=== PATIENT | female | born 1970 | race African-American/Black ===

== ENCOUNTER 2019-04-26 17:33 | Observation (INO) | payer OTHER ==
--- OUTSIDE RECORDS SUMMARY | 2019-04-26 17:36 | XMS REPORT | Summary of Care ---
:1970 Author Organization [facility] Address [address] [place] [address] Care Team Providers Name Role Phone Pcp, Patient Does Not Have A Primary Care Provider Reason for Visit Reason Comments Hand Pain Right Hand Encounter Details Date Type Department Care Team Description 11/22/2018 Office Visit [facility] Orthopaedic Abram Preciado S, Trigger thumb of right Surgery- [place] PAC hand (Primary Dx) [address], [address] [place] [address] [place], [place] [phone] Allergies Active Allergy Reactions Severity Noted Date Comments Propoxyphene N-Acetaminophen Unknown - See comments 04/01/2006 Naproxen Unknown - See comments 04/01/2006 Hydrocodone-Acetaminophen Unknown - See comments 04/01/2006 Olanzapine Unknown - See comments 04/01/2006 documented as of this encounter (statuses as of 11/22/2018) Medications Medication Sig Dispensed Refills Start Date End Date Status metoprolol tartrate 50 TAKE 1 TABLET BY 60 tablet 5 08/15/2018 Active mg tabletIndications: MOUTH 2 (TWO) Essential hypertension TIMES DAILY. QUEtiapine 200 mg TAKE 2-3 TABLETS 90 tablet 5 08/15/2018 Active tabletIndications: BY MOUTH EVERY Bipolar 1 disorder NIGHT AT BED TIME. escitalopram oxalate 10 TAKE ONE TABLET 30 tablet 5 08/15/2018 Active mg tabletIndications: BY MOUTH DAILY. Bipolar 1 disorder ` albuterol (VENTOLIN HFA) INHALE 1-2 PUFFS 18 g 11 08/15/2018 Active 90 mcg/actuation AT BEDTIME inhalerIndications: NEEDED Other chest pain nitroglycerin 0.4 mg 1 SL at onset of 20 Bottle 2 08/15/2018 Active sublingual chest pain, tabletIndications: Other repeat every 5 chest pain mins if chest pain persists up to 3 doses total diclofenac 75 mg EC Take 1 tablet by 60 tablet 1 09/12/2018 Active tabletIndications: Acute mouth 2 (two) idiopathic gout times daily with involving toe of right meals. foot emtricitabine-tenofovir Take 1 tablet by 30 tablet 11 11/13/2018 Active alafen (DESCOVY) mouth daily. tabletIndications: HIV Take one 200/25 (human immunodeficiency mg tablet once virus infection) daily (take with efavirenz) efavirenz 600 mg 1 po once daily 30 tablet 11 11/13/2018 Active tabletIndications: HIV (take with (human immunodeficiency Descovy) virus infection) methylPREDNISolone Take 21 tablets 1 Each 0 11/22/2018 Active (MEDROL, VALENTINE,) 4 mg by mouth tabletsIndications: SEE-INSTRUCTIONS Trigger thumb of right . follow package hand directions documented as of this encounter (statuses as of 11/22/2018) Active Problems Problem Noted Date Bipolar 1 disorder 10/04/2011 Human immunodeficiency virus (HIV) disease 07/02/2007 documented as of this encounter (statuses as of 11/22/2018) Resolved Problems Problem Noted Date Resolved Date Chronic ulcer 07/12/2006 01/27/2009 Overview: ICD10 Diagnosis Term Box Repairer Utility Thrombocytopenia 03/20/2006 01/27/2009 Overview: ICD10 Diagnosis Term Box Repairer Utility Other specified cardiac dysrhythmias(427.89) 03/20/2006 01/27/2009 Peritonitis 03/12/2006 01/27/2009 Overview: ICD10 Diagnosis Term Box Repairer Utility ASYMPTOMATIC HIV INFECTION STATUS(aka V08) 03/12/2006 01/27/2009 Other specified hypotension 03/12/2006 01/27/2009 documented as of this encounter (statuses as of 11/22/2018) Immunizations Name Administration Dates Next Due Influenza Virus Vaccine 12/27/2011, 02/16/2011 PPD (TB) 03/03/2012 Pneumococcal 13 Conjugate, PCV13 (Prevnar 13) 06/16/2014 Pneumococcal Polysaccharide, PPSV23 (PNEUMOVAX) 09/10/2007 TDAP (ADACEL) VACCINE 02/16/2011 documented as of this encounter Social History Tobacco Use Types Packs/Day Years Used Date Never Smoker Smokeless Tobacco: Never Used Alcohol Use Drinks/Week oz/Week Comments No Sex Assigned at Date Recorded Not on file Job Start Date Occupation Industry Not on file Not on file Not on file Travel History Travel Start Travel End No recent travel history available. documented as of this encounter Last Filed Vital Signs Vital Sign Reading Time Taken Comments Blood Pressure 125/82 11/22/2018 3:51 PM CDT Pulse 88 11/22/2018 3:51 PM CDT Temperature - - Respiratory Rate - - Oxygen Saturation - - Inhaled Oxygen Concentration - - Weight 97.1 kg (214 lb) 11/22/2018 3:51 PM CDT Height 152.4 cm (5') 11/22/2018 3:51 PM CDT Body Mass Index 41.79 11/22/2018 3:51 PM CDT documented in this encounter Progress Notes Abram Preciado S, PAC - 11/22/2018 3:45 PM CDT Cc: Chief Complaint Patient presents with Hand Pain Right Hand NCEP - Right hand pain - onset 1 week. Denies injury. Sharp shooting pain in palm of hand that radiates to mid-forearm. Has taken Aleve and tried bracing which has not helped. No films. Dariela Coelho is a 48 year old female. Right hand pain - onset 1 week. Denies injury. Sharp shooting pain in palm of hand that radiates to mid-forearm. Has taken Aleve and tried bracing which has not helped. Her right thumb wouldn't bend, volar thumb pain Allergies Dariela is allergic to darvocet a500 [propoxyphene n-acetaminophen]; naproxen ; vicodin [hydrocodone-acetaminophen]; and zyprexa [olanzapine]. Medications Outpatient Medications Prior to Visit Medication Sig Dispense Refill efavirenz 600 mg tablet 1 po once daily (take with Descovy) 30 tablet 11 emtricitabine-tenofovir alafen (DESCOVY) tablet Take 1 tablet by mouth daily. Take one 200/25 mgtablet once daily (take with efavirenz) 30 tablet 11 diclofenac 75 mg EC tablet Take 1 tablet by mouth 2 (two) times daily with meals. 60 tablet 1 albuterol (VENTOLIN HFA) 90 mcg/actuation inhaler INHALE 1-2 PUFFS AT BEDTIME NEEDED 18 g 11 escitalopram oxalate 10 mg tablet TAKE ONE TABLET BY MOUTH DAILY. ` 30 tablet 5 metoprolol tartrate 50 mg tablet TAKE 1 TABLET BY MOUTH 2 (TWO) TIMES DAILY. 60 tablet 5 nitroglycerin 0.4 mg sublingual tablet 1 SL at onset of chest pain, repeat every 5 mins if chestpain persists up to 3 doses total 20 Bottle 2 QUEtiapine 200 mg tablet TAKE 2-3 TABLETS BY MOUTH EVERY NIGHT AT BED TIME. 90 tablet 5 No facility-administered medications prior to visit. 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 Bipolar I disorder 01/27 Cardiomyopathy Echo 05/24 (25% EF), last Echo nl except trace TR in 02/25 GERD (gastroesophageal reflux disease) resolved Hepatitis 06/12/06 non-necrotizing granulomas on liver bx Herpes genitalis HTN (hypertension) when heavier Human immunodeficiency virus (HIV) disease 1994 Oral candidiasis Proteinuria 05/25 30 mg/dL Wasting 02/22 weight 04/26=93 lbs, pre-illness wt - 180 lbs Past Surgical History: Procedure Laterality Date LAP,CHOLECYSTECTOMY 02/22 TOTAL ABDOMINAL HYSTERECTOMY 12/06/10 TUBAL LIGATION Social History Socioeconomic History Marital status: Spouse name: Not on file Number of children: Not on file Years of education: Not on file Highest education level: Not on file Occupational History Not on file Social Needs Financial resource strain: Not on file Food insecurity: Worry: Not on file Inability: Not on file Transportation needs: Medical: Not on file Non-medical: Not on file Tobacco Use Smoking status: Never Smoker Smokeless tobacco: Never Used Substance and Sexual Activity Alcohol use: No Drug use: No Sexual activity: Not Currently Lifestyle Physical activity: Days per week: Not on file Minutes per session: Not on file Stress: Not on file Relationships Social connections: Talks on phone: Not on file Gets together: Not on file Attends congregational service: Not on file Active member of club or organization: Not on file Attends meetings of clubs or organizations: Not on file Relationship status: Not on file Intimate partner violence: Fear of current or ex partner: Not on file Emotionally abused: Not on file Physically abused: Not on file Forced sexual activity: Not on file Other Topics Concern Not on file Social History Narrative Lives in [place] with 3 teen age kids (age 17, 14, 13) oldest 18 y/o enrolled in college. 5 children total Kids were with 1st , Currently from 2nd , Elijah Coelho, who is HIV (+) and formerly a patient here. He is not reeving HIV care that she knows of Has Medicaid/Medicare. 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 HENT: Negative. Eyes: Negative. Respiratory: Negative. Breasts: Negative. Cardiovascular: Negative. Gastrointestinal: Negative. Genitourinary: Negative. Musculoskeletal: Positive for joint swelling. Skin: Negative. Neurological: Negative. Psychiatric/Behavioral: Negative. Endocrine: Endocrine negative Vital Signs BP 125/82 | Pulse 88 | Ht 60" (152.4 cm) | Wt 97.1 kg (214 lb) | BMI 41.79 kg/m Physical Exam Musculoskeletal: General: Well-developed well-nourished oriented to person place and time HEENT normocephalic atraumatic atraumatic pupils equal round reactive to light extraocular muscles intact Cervical thoracic and lumbar spine without focal deficit normal kyphosis and lordosis Chest clear to auscultation and percussion Cardiovascular regular rate and rhythm without gallop rub or murmur soft without organomegaly Normal bowel sounds Neurologic: Focal myotome or dermatomal deficits Vascular: Intact symmetrical bilateral upper and lower extremities Skin without stasis varicosities or breakdown Extremities without cyanosis clubbing or edema Lymphatics no peripheral lymphedema Psych normal mood and affect. Right thumb point tender on volar MPC faint triggering palpable Assessment/Plan 1. Trigger thumb of right hand We will put her in a thumb spica splint for 2 weeks and prescribe a medrol dosepack. F/u prn. 4 :29 PM CDTdocumented in this encounter Plan of Treatment Health Maintenance Due Date Last Done Comments MAMMOGRAM 2011 PAP SMEAR 04/16/2011 04/16/2008, 03/07/2007, 11/04/2005, Additional history exists PNEUMOCOCCAL 0-64 YEARS COMBINED 08/11/2014 06/16/2014, 09/10/2007 SERIES (3 of 3 - PPSV23) INFLUENZA VACCINE (#1) 2018 12/27/2011, 02/16/2011 DTaP,Tdap,and Td Vaccines (2 - Td) 02/16/2021 02/16/2011 documented as of this encounter Results Not on filedocumented in this encounter Visit Diagnoses Diagnosis Trigger thumb of right hand - Primary Trigger finger (acquired) documented in this encounter Insurance Payer Benefit Plan / Subscriber ID Effective Dates Phone Address Type Group MEDICARE MEDICARE PART xxxxxxxxxxx 2008-Berry [phone] 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
--- OUTSIDE RECORDS SUMMARY | 2019-04-26 17:36 | XMS REPORT ---
:1970 Author [facility] Address [address] [place] [address] Care Team Providers Name Role Phone Unavailable Unavailable Unavailable Problems This patient has no known problems. Allergies, Adverse Reactions, Alerts This patient has no known allergies or adverse reactions. Medications This patient has no known medications.
--- OUTSIDE RECORDS SUMMARY | 2019-04-26 17:36 | XMS REPORT | Summary of Care ---
:1970 Author Organization [facility] Address [address] [place] [address] Care Team Providers Name Role Phone Pcp, Patient Does Not Have A Primary Care Provider Reason for Visit Reason Comments Hand Pain Right Hand Encounter Details Date Type Department Care Team Description 11/22/2018 Office Visit [facility] Orthopaedic Abram Preciado S, Trigger thumb of right Surgery- [place] PAC hand (Primary Dx) [address], [address] [place] [address] [place], [place] [phone] Allergies Active Allergy Reactions Severity Noted Date [...] ulcer 07/12/2006 01/27/2009 Overview: ICD10 Diagnosis Term Waistline Joiner Utility Thrombocytopenia 03/20/2006 01/27/2009 Overview: ICD10 Diagnosis Term Waistline Joiner Utility Other specified cardiac dysrhythmias(427.89) 03/20/2006 01/27/2009 Peritonitis 03/12/2006 01/27/2009 Overview: ICD10 Diagnosis Term Waistline Joiner Utility ASYMPTOMATIC HIV INFECTION STATUS(aka V08) 03/12/2006 [...] file Gets together: Not on file Attends latter day service: Not on file Active member of [...] on file Social History Narrative Lives in [place] with 3 teen age kids (age 17, 14, 13) oldest 18 y/o enrolled in college. 5 children total Kids were with 1st , Currently from 2nd , Elijah Coelho, who is HIV (+) and formerly a patient here. He is not reeving HIV care that she knows of Has Medicaid/Medicare. 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
--- OUTSIDE RECORDS SUMMARY | 2019-04-26 17:36 | XMS REPORT | Summary of Care ---
:1970 Author Organization [facility] Address [address] [place] [id number] Care Team Providers Name Role Phone Pcp, Patient Does Not Have A Primary Care Provider Reason for Visit Reason Comments Hand Pain Right Hand Encounter Details Date Type Department Care Team Description 11/22/2018 Office Visit [facility] Orthopaedic Abram Preciado S, Trigger thumb of right Surgery- [place] PAC hand (Primary Dx) [address], [address] [place] [address] [place], [place] [phone] Allergies Active Allergy Reactions Severity Noted Date [...] ulcer 07/12/2006 01/27/2009 Overview: ICD10 Diagnosis Term Diamond Die Driller Utility Thrombocytopenia 03/20/2006 01/27/2009 Overview: ICD10 Diagnosis Term Diamond Die Driller Utility Other specified cardiac dysrhythmias(427.89) 03/20/2006 01/27/2009 Peritonitis 03/12/2006 01/27/2009 Overview: ICD10 Diagnosis Term Diamond Die Driller Utility ASYMPTOMATIC HIV INFECTION STATUS(aka V08) 03/12/2006 [...] file Gets together: Not on file Attends [employer] service: Not on file Active member of [...] on file Social History Narrative Lives in [place] with 3 teen age kids (age 17, 14, 13) oldest 18 y/o enrolled in college. 5 children total Kids were with 1st , Currently from 2nd , Elijah Coelho, who is HIV (+) and formerly a patient here. He is not reeving HIV care that she knows of Has Medicaid/Medicare. 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
--- OUTSIDE RECORDS SUMMARY | 2019-04-26 17:36 | XMS REPORT | Summary of Care ---
:1970 Author Organization [facility] Address [address] [place] [address] Care Team Providers Name Role Phone Pcp, Patient Does Not Have A Primary Care Provider Reason for Visit Reason Comments Rx Concern/Question Scanned & uploaded THMP/ADAP med change into [employer] for processing Encounter Details Date Type Department Care Team Description 11/14/2018 Case Management [facility] Angie Wiggins MA Rx Concern/Question Infectious [address] [place] [address] (Scanned & uploaded Diseases- [address] THMP/[place] [address] into [employer] for [address] [place] [address] Allergies Active Allergy Reactions Severity Noted Date Comments Propoxyphene N-Acetaminophen Unknown - See comments 04/01/2006 Naproxen Unknown - See comments 04/01/2006 Hydrocodone-Acetaminophen Unknown - See comments 04/01/2006 Olanzapine Unknown - See comments 04/01/2006 documented as of this encounter (statuses as of 11/14/2018) Medications Medication Sig Dispensed Refills Start Date [...] (take with (human immunodeficiency Descovy) virus infection) documented as of this encounter (statuses as of 11/14/2018) Active Problems Problem Noted Date Bipolar 1 disorder 10/04/2011 Human immunodeficiency virus (HIV) disease 07/02/2007 documented as of this encounter (statuses as of 11/14/2018) Resolved Problems Problem Noted Date Resolved Date Chronic ulcer 07/12/2006 01/27/2009 Overview: ICD10 Diagnosis Term Mobile Mechanic Utility Thrombocytopenia 03/20/2006 01/27/2009 Overview: ICD10 Diagnosis Term Mobile Mechanic Utility Other specified cardiac dysrhythmias(427.89) 03/20/2006 01/27/2009 Peritonitis 03/12/2006 01/27/2009 Overview: ICD10 Diagnosis Term Mobile Mechanic Utility ASYMPTOMATIC HIV INFECTION STATUS(aka V08) 03/12/2006 01/27/2009 Other specified hypotension 03/12/2006 01/27/2009 documented as of this encounter (statuses as of 11/14/2018) Immunizations Name Administration Dates Next Due Influenza [...] of this encounter Last Filed Vital Signs Not on filedocumented in this encounter Plan of Treatment Health Maintenance Due Date Last Done Comments MAMMOGRAM 2011 PAP SMEAR 04/16/2011 04/16/2008, 03/07/2007, 11/04/2005, Additional history exists PNEUMOCOCCAL 0-64 YEARS COMBINED 08/11/2014 06/16/2014, 09/10/2007 SERIES (3 of 3 - PPSV23) INFLUENZA VACCINE (#1) 2018 12/27/2011, 02/16/2011 DTaP,Tdap,and Td Vaccines (2 - Td) 02/16/2021 02/16/2011 documented as of this encounter Results Not on filedocumented in this encounter Insurance Payer Benefit Plan / Subscriber ID Effective Dates Phone Address Type Group MEDICARE MEDICARE PART xxxxxxxxxxx 2008-Berry [phone] 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
--- OUTSIDE RECORDS SUMMARY | 2019-04-26 17:37 | XMS REPORT | Summary of Care ---
:1970 Author Organization [facility] Address [address] [place] [address] Care Team Providers Name Role Phone Pcp, Patient Does Not Have A Primary Care Provider Reason for Visit Reason Comments Follow-up Encounter Details Date Type Department Care Team Description 11/13/2018 Office Visit [facility] HIV (human Infectious Diseases- [address] [place] [address] immunodeficiency virus [place] [id number] infection) (Primary Dx) [place] [address] [phone] [place], [place] [phone] [address] (Fax) [phone] Allergies Active Allergy Reactions Severity Noted Date Comments Propoxyphene N-Acetaminophen Unknown - See comments 04/01/2006 Naproxen Unknown - See comments 04/01/2006 Hydrocodone-Acetaminophen Unknown - See comments 04/01/2006 Olanzapine Unknown - See comments 04/01/2006 documented as of this encounter (statuses as of 11/26/2018) Medications Medication Sig Dispensed Refills Start Date End Date Status metoprolol tartrate 50 TAKE 1 TABLET 60 tablet 5 08/15/2018 Active mg tabletIndications: BY MOUTH 2 Essential hypertension (TWO) TIMES DAILY. QUEtiapine 200 mg TAKE 2-3 90 tablet 5 08/15/2018 Active tabletIndications: TABLETS BY Bipolar 1 disorder MOUTH EVERY NIGHT AT BED TIME. escitalopram oxalate TAKE ONE 30 tablet 5 08/15/2018 Active 10 mg TABLET BY tabletIndications: MOUTH DAILY. Bipolar 1 disorder ` albuterol (VENTOLIN INHALE 1-2 18 g 11 08/15/2018 Active HFA) 90 mcg/actuation PUFFS AT inhalerIndications: BEDTIME Other chest pain NEEDED nitroglycerin 0.4 mg 1 SL at onset 20 Bottle 2 08/15/2018 Active sublingual of chest tabletIndications: pain, repeat Other chest pain every 5 mins if chest pain persists up to 3 doses total diclofenac 75 mg EC Take 1 tablet 60 tablet 1 09/12/2018 Active tabletIndications: by mouth 2 Acute idiopathic gout (two) times involving toe of right daily with foot meals. emtricitabine-tenofovi Take 1 tablet 30 tablet 11 11/13/2018 Active r alafen (DESCOVY) by mouth tabletIndications: HIV daily. Take (human one 200/25 mg immunodeficiency virus tablet once infection) daily (take with efavirenz) efavirenz 600 mg 1 po once 30 tablet 11 11/13/2018 Active tabletIndications: HIV daily (take (human with Descovy) immunodeficiency virus infection) efavirenz-emtricitabin Take 1 tablet 30 tablet 0 08/15/2018 Discontinued -tenofov (ATRIPLA) by mouth at 9 600-200-300 mg per bedtime. Call tabletIndications: HIV for appt. (human [place] for immunodeficiency virus further infection) refills ATRIPLA 600-200-300 mg TAKE 1 TABLET 30 tablet 2 08/23/2018 Discontinued per tablet BY MOUTH AT 9 BEDTIME. TAKE ONE-HALF TABLET documented as of this encounter (statuses as of 11/26/2018) Active Problems Problem Noted Date Bipolar 1 disorder 10/04/2011 Human immunodeficiency virus (HIV) disease 07/02/2007 documented as of this encounter (statuses as of 11/26/2018) Resolved Problems Problem Noted Date Resolved Date Chronic ulcer 07/12/2006 01/27/2009 Overview: ICD10 Diagnosis Term Linen Room Attendant Utility Thrombocytopenia 03/20/2006 01/27/2009 Overview: ICD10 Diagnosis Term Linen Room Attendant Utility Other specified cardiac dysrhythmias(427.89) 03/20/2006 01/27/2009 Peritonitis 03/12/2006 01/27/2009 Overview: ICD10 Diagnosis Term Linen Room Attendant Utility ASYMPTOMATIC HIV INFECTION STATUS(aka V08) 03/12/2006 01/27/2009 Other specified hypotension 03/12/2006 01/27/2009 documented as of this encounter (statuses as of 11/26/2018) Immunizations Name Administration Dates Next Due Influenza [...] Sign Reading Time Taken Comments Blood Pressure 106/74 11/13/2018 1:53 PM CDT Pulse 80 11/13/2018 1:53 PM CDT Temperature 36.9 C (98.4 F) 11/13/2018 1:53 PM CDT Respiratory Rate 16 11/13/2018 1:53 PM CDT Oxygen Saturation - - Inhaled Oxygen Concentration - - Weight 96.3 kg (212 lb 3.2 oz) 11/13/2018 1:53 PM CDT Height 157.5 cm (5' 2") 11/13/2018 1:53 PM CDT Body Mass Index 38.81 11/13/2018 1:53 PM CDT documented in this encounter Progress Notes Nelson Villalobos - 11/13/2018 2:00 PM CDT ID Clinic Visit YUE 11/13/18 Chief Complaint: Scheduled HIV Visit Ms. Coelho is a 48yo AA female presenting today for HIV follow-up visit. She has the PMH mentioned below. Today she c/o of shortness of breath after walking up 1 flight of stairs. She says she will get winded jail, has to catch her breath and then continue. She denies associated chest pain. Shestates when she uses the albuterol she doesn't notice much relief. Last visit she was complaining of substernal chest pain with associated diaphoresis, paresthesias and SOB. She has had about 3 episodes since last visit and last episode was 3wks ago. The chest pain is described as sharp and starts with pain in left arm and radiates to chest. She relieves the chestpain with 1 nitroglycerin and does not require further administration of nitro. The pain starts when she gets angry or stressed, but not exertional. She started having hot flashes recently and denies associated fever, chills, nausea or vomiting. She thinks it's associated with menopause because she has not had her period. She has been having neckspasms as well which she attributes to stress. She also recently went to the orthopedist due to heel pain and they believe it is plantar fasciitis. ALLERGIES Allergies Allergen Reactions Darvocet A500 [Propoxyphene N-Acetaminophen] Unknown - See comments Naproxen Unknown - See comments Vicodin [Hydrocodone-Acetaminophen] Unknown - See comments Zyprexa [Olanzapine] Unknown - See comments MEDICATIONS Current Outpatient Medications Medication Sig Dispense Refill efavirenz 600 mg [...] AT BED TIME. 90 tablet 5 No current facility-administered medications for this visit. HISTORY Past Medical History: Diagnosis Date Bacterial liver [...] 04/26=93 lbs, pre-illness wt - 180 lbs REVIEW OF SYSTEMS (-)=Negative (+)=Positive General: (+) fatigue, (-) fever, (-) chills HEENT: (-) headache, (-) change in hearing, (-) change in vision Neck: (-) difficulty swallowing Respiratory system: (+) dyspnea on exertion, (-) cough, (-) orthopnea Cardiovascular: (-) chest pain, (-) palpitations Gastrointestinal: (-) abdominal pain, (-) nausea, (-) vomiting, (-) diarrhea Genitourinary: (-) dysuria, (-) hematuria Endocrine: (+) hot flashes Neurological: (-) numbness, (-) tingling Extremities / musculoskeletal: (-) muscle pain, (-) joint pain PHYSICAL EXAM BP 106/74 | Pulse 80 | Temp 36.9 C (98.4 F) | Resp 16 | Ht 5' 2" (1.575 m) | Wt 212 lb 3.2 oz (96.3 kg) | BMI 38.81 kg/m LABORATORY 08/15/18 HIV-1 RT PCR=< 40 hat copyist/ml KH6=120 ASSESSMENT/PLAN 1. HIV/AIDS - well managed on Atripla with most recent VL <40 hat copyist/mL - switch from Atripla to Descovy+efavirenz - will finish current supply of Atripla and then start new medicine regimen 2. Shortness of breath - follow-up with PCP for further evaluation and PFTs 3. Chest pain - referral for chemical stress test to further evaluate 3. Plantar Fasciitis - due to CKD recommend taking diclofenac sparingly and not everyday 4. Neck Spasms - showed her neck exercises that may help relieve the tension RTC 3 months documented in this encounter Plan of Treatment Health [...] filedocumented in this encounter Visit Diagnoses Diagnosis HIV (human immunodeficiency virus infection) - Primary Asymptomatic human immunodeficiency virus (HIV) infection status documented in this encounter Insurance Payer Benefit Plan / Subscriber ID Effective Dates Phone Address Type Group MEDICARE MEDICARE PART xxxxxxxxxxx 2008-Berry [phone] 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
--- OUTSIDE RECORDS SUMMARY | 2019-04-26 17:37 | XMS REPORT | Summary of Care ---
:1970 Author Organization [facility] Address [address] [place] [address] Care Team Providers Name Role Phone Pcp, Patient Does Not Have A Primary Care Provider Reason for Visit Reason Comments Follow-up Encounter Details Date Type Department Care Team Description 11/13/2018 Office Visit [facility] Nelson HIV (human Infectious Diseases- [address] [place] [address] immunodeficiency virus Rew [id number] infection) (Primary Dx) [place] [address] [phone] [place], [place] [phone] (Fax) [phone] Allergies Active Allergy Reactions Severity Noted Date [...] ulcer 07/12/2006 01/27/2009 Overview: ICD10 Diagnosis Term Oil Mixer Utility Thrombocytopenia 03/20/2006 01/27/2009 Overview: ICD10 Diagnosis Term Oil Mixer Utility Other specified cardiac dysrhythmias(427.89) 03/20/2006 01/27/2009 Peritonitis 03/12/2006 01/27/2009 Overview: ICD10 Diagnosis Term Oil Mixer Utility ASYMPTOMATIC HIV INFECTION STATUS(aka V08) 03/12/2006 [...] stairs. She says she will get winded care home, has to catch her breath and then [...] kg/m LABORATORY 08/15/18 HIV-1 RT PCR=< 40 copywriter/ml LD9=951 ASSESSMENT/PLAN 1. 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
--- OUTSIDE RECORDS SUMMARY | 2019-04-26 17:37 | XMS REPORT | Summary of Care ---
:1970 Author Organization [facility] Address [address] [place] [address] Care Team Providers Name Role Phone Pcp, Patient Does Not Have A Primary Care Provider Encounter Details Date Type Department Care Team Description 11/22/2018 Letter (Out) [facility] Orthopaedic Jayson Juarez MD Surgery- [place] [address] [facility] [address] [facility], [place] [address] [place] [address] [place], [place] [phone] Allergies Active Allergy Reactions Severity Noted Date [...] 200 mg TAKE 2-3 TABLETS 90 tablet 08/15/2018 Active tabletIndications: BY MOUTH EVERY Bipolar 1 disorder NIGHT AT BED TIME. escitalopram oxalate 10 TAKE ONE TABLET 30 tablet 08/15/2018 Active mg tabletIndications: BY MOUTH DAILY. [...] ulcer 07/12/2006 01/27/2009 Overview: ICD10 Diagnosis Term Steel Tester Utility Thrombocytopenia 03/20/2006 01/27/2009 Overview: ICD10 Diagnosis Term Steel Tester Utility Other specified cardiac dysrhythmias(427.89) 03/20/2006 01/27/2009 Peritonitis 03/12/2006 01/27/2009 Overview: ICD10 Diagnosis Term Steel Tester Utility ASYMPTOMATIC HIV INFECTION STATUS(aka V08) 03/12/2006 [...] BOX Medicare A & B t 2 [id number] [place] [phone] documented as of this encounter Advance Directives Type Date Recorded Patient Manager Of Purchasing Explanation Advance Directives and Living Will Advance Directives and Living Will Power of Photographic Equipment Assembler Power of Photographic Equipment Assembler
--- OUTSIDE RECORDS SUMMARY | 2019-04-26 17:37 | XMS REPORT | Summary of Care ---
:1970 Author Organization [facility] Address [address] [place] [address] Care Team Providers Name Role Phone Pcp, Patient Does Not Have A Primary Care Provider Encounter Details Date Type Department Care Team Description 11/22/2018 Orders Only [facility] Doctor Unassigned, No [address] [facility] [place] [address] [address] [place] [address] Allergies Active Allergy Reactions Severity Noted Date Comments Propoxyphene N-Acetaminophen Unknown - See comments 04/01/2006 Naproxen Unknown - See comments 04/01/2006 Hydrocodone-Acetaminophen Unknown - See comments 04/01/2006 Olanzapine Unknown - See comments 04/01/2006 documented as of this encounter (statuses as of 12/05/2018) Medications Medication Sig Dispensed Refills Start Date [...] as of this encounter (statuses as of 12/05/2018) Active Problems Problem Noted Date Bipolar 1 disorder 10/04/2011 Human immunodeficiency virus (HIV) disease 07/02/2007 documented as of this encounter (statuses as of 12/05/2018) Resolved Problems Problem Noted Date Resolved Date Chronic ulcer 07/12/2006 01/27/2009 Overview: ICD10 Diagnosis Term Associate Property Manager Utility Thrombocytopenia 03/20/2006 01/27/2009 Overview: ICD10 Diagnosis Term Associate Property Manager Utility Other specified cardiac dysrhythmias(427.89) 03/20/2006 01/27/2009 Peritonitis 03/12/2006 01/27/2009 Overview: ICD10 Diagnosis Term Associate Property Manager Utility ASYMPTOMATIC HIV INFECTION STATUS(aka V08) 03/12/2006 01/27/2009 Other specified hypotension 03/12/2006 01/27/2009 documented as of this encounter (statuses as of 12/05/2018) Immunizations Name Administration Dates Next Due Influenza [...] 02/16/2021 02/16/2011 documented as of this encounter Procedures Procedure Name Priority Date/Time Associated Diagnosis Comments DME/SUPPLY JUSTIFICATION Routine 11/22/2018 12:01 AM CDT documented in this encounter Results Not on filedocumented in this encounter Insurance Payer Benefit Plan / Subscriber ID Effective Dates Phone Address Type Group MEDICARE MEDICARE PART xxxxxxxxxxx 2008-Berry [phone] 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
--- OUTSIDE RECORDS SUMMARY | 2019-04-26 17:37 | XMS REPORT | Summary of Care ---
:1970 Author Organization [address] [address] Care Team Providers Name Role Phone Pcp, Patient Does Not Have A Primary Care Provider Reason for Visit Reason Comments Rx Concern/Question THMP/ADAP med change approved 11-16-2018 Encounter Details Date Type Department Care Team Description 11/30/2018 Case Management [facility] Angie Wiggins MA Rx Concern/Question Infectious [address] [place] [address] (THMP/ADAP med Diseases- [place] [facility] [place] [place] [address] 11-16-2018) [address] [facility], [address]th [place] [phone] Allergies Active Allergy Reactions Severity Noted Date Comments Propoxyphene N-Acetaminophen Unknown - See comments 04/01/2006 Naproxen Unknown - See comments 04/01/2006 Hydrocodone-Acetaminophen Unknown - See comments 04/01/2006 Olanzapine Unknown - See comments 04/01/2006 documented as of this encounter (statuses as of 11/30/2018) Medications Medication Sig Dispensed Refills Start Date [...] as of this encounter (statuses as of 11/30/2018) Active Problems Problem Noted Date Bipolar 1 disorder 10/04/2011 Human immunodeficiency virus (HIV) disease 07/02/2007 documented as of this encounter (statuses as of 11/30/2018) Resolved Problems Problem Noted Date Resolved Date Chronic ulcer 07/12/2006 01/27/2009 Overview: ICD10 Diagnosis Term Vamp Seamer Utility Thrombocytopenia 03/20/2006 01/27/2009 Overview: ICD10 Diagnosis Term Vamp Seamer Utility Other specified cardiac dysrhythmias(427.89) 03/20/2006 01/27/2009 Peritonitis 03/12/2006 01/27/2009 Overview: ICD10 Diagnosis Term Vamp Seamer Utility ASYMPTOMATIC HIV INFECTION STATUS(aka V08) 03/12/2006 01/27/2009 Other specified hypotension 03/12/2006 01/27/2009 documented as of this encounter (statuses as of 11/30/2018) Immunizations Name Administration Dates Next Due Influenza [...] Type Group MEDICARE MEDICARE PART xxxxxxxxxxx 2008-Berry [phone] 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
--- NOTE | 2019-04-26 18:21 | RAD REPORT ---
EXAM DESCRIPTION: RAD - Chest Single View - 04/26/2019 6:12 pm CLINICAL HISTORY: CHEST PAIN Chest pain. COMPARISON: Chest Single View dated 03/02/2017; Chest Pa And Lat (2 Views) dated 10/30/2016; Chest Pa And Lat (2 Views) dated 09/27/2016; Chest Pa And Lat (2 Views) dated 09/18/2016 FINDINGS: Portable technique limits examination quality. The lungs are grossly clear. The heart is normal in size. No displaced fractures. IMPRESSION: No acute intrathoracic process suspected.
[2019-04-26 18:31] LABS: Absolute Lymphocytes (CBC) 1.5 K/uL (0.7-4.9); Basophils % 0.6 % (0-1.3); Hematocrit 42.9 % (36.0-45.0); Lymphocytes % 33.3 % (15.3-44.8); MPV 9.2 fL (7.6-11.3)
[2019-04-26 18:32] LABS: Protime INR 1.09
[2019-04-26] MEDS ORDERED: cloNIDine HCL 0.1 MG TAB ONE (18:34)
[2019-04-26] MEDS ORDERED: ONDANSETRON 4 MG/2 ML VIAL ONE (18:35)
[2019-04-26] MEDS ORDERED: MORPHINE 4 MG/ML SYR ONE (18:35)
[2019-04-26 18:39] LABS: ALT/SGPT 17 U/L (12-78); AST/SGOT 15 U/L (15-37); Albumin 3.9 g/dL (3.4-5.0); Alkaline Phosphatase 148 U/L (45-117); BUN Blood Urea Nitrogen 17 mg/dL (7-18); Bicarbonate 31 mmol/L (21-32); Bilirubin Direct < 0.1 mg/dL (0-0.2); Bilirubin Total 0.4 mg/dL (0.2-1.0); Glucose Level 95 mg/dL (74-106); Magnesium 1.9 mg/dL (1.8-2.4); NT PRO-BNP 49 pg/mL (<125); Potassium 3.8 mmol/L (3.5-5.1); Protein, Total 8.7 g/dL (6.4-8.2); Sodium Level 139 mmol/L (136-145); Troponin (Emerg Dept Use Only) < 0.02 ng/mL (0.0-0.045)
--- NOTE | 2019-04-26 18:46 | RAD REPORT ---
EXAM DESCRIPTION: CT - Head Brain Wo Cont - 04/26/2019 6:31 pm CLINICAL HISTORY: headache, elevated blood pressure COMPARISON: HEAD BRAIN W O CONTRAST dated 11/06/2014; HEAD BRAIN W O CONTRAST dated 07/11/2010 TECHNIQUE: All CT scans are performed using dose optimization technique as appropriate and may inclu de automated exposure control or mA/KV adjustment according to patient size. FINDINGS: No intracranial hemorrhage, hydrocephalus or extra-axial fluid collection.No areas of brai n edema or evidence of midline shift. The paranasal sinuses and mastoids are clear. The calvarium is intact. IMPRESSION: No acute intracranial abnormality.
[2019-04-26 18:55] LABS: Urine Blood NEGATIVE (NEG); Urine Glucose NEGATIVE (NEG); Urine Protein NEGATIVE (NEG); Urine Specific Gravity 1.025 (1.005-1.030)
[2019-04-26] MEDS ORDERED: DIAZEPAM 10 MG/2 ML INJ SYRINGE ONE (19:17)
--- NOTE | 2019-04-26 20:38 | RAD REPORT ---
EXAM DESCRIPTION: CT - Chest For Pe Angio - 04/26/2019 8:26 pm CLINICAL HISTORY: Chest pain. CHEST PAIN COMPARISON: CTANGIO CHEST FOR PE dated 09/01/2014 TECHNIQUE: CT angiogram of the pulmonary arteries was performed with MIP. All CT scans are performed using dose optimization technique as appropriate and may include automated exposure control or mA/KV adjustment according to patient size. FINDINGS: No evidence of pulmonary thromboembolism. No acute aortic finding demonstrated. Mild interstitial pulmonary edema suspected. No significant pericardial or pleural fluid. No concerning bony finding. Small hiatal hernia. IMPRESSION: No evidence of pulmonary thromboembolism. Mild interstitial pulmonary edema.
--- NOTE | 2019-04-26 20:55 | EDPHYS ---
Physician Documentation [facility] Name: Dariela Coelho Age: 49 yrs Sex: Female : 1970 Arrival Date: 04/26/2019 Time: 17:36 Bed 25 Private MD: ED Physician Kate Blue HPI: 04/26 18:25 This 49 yrs old Black Female presents to ER via Ambulatory with complaints of High [facility] Blood Pressure, Chest Pain, Arm Pain. 18:25 The patient or guardian reports chest pain that is located primarily in the substernal [facility] area, anterior chest wall, left. Onset: gradually, 2 day(s) ago. The pain radiates to the left arm. Associated signs and symptoms: Pertinent positives: headache. The chest pain is described as aching, sharp. This is a 49 year old female with a history of bipolar that presents to the ED with complaints of left shoulder pain beginning 2 days ago which spread to the left side of the chest and down the left arm. Patient states her blood pressure has been elevated along with developing a headache. Patient states she does not currently take medication for blood pressure. . MANAGER ADMINISTRATION: 17:42 LMP N/A - Depo-provera aj1 Historical: - Allergies: 17:42 Naproxen; aj1 17:42 Ibuprofen; aj1 17:42 Bactrim; aj1 17:42 Codeine; aj1 - Home Meds: 17:42 Seroquel 200 mg oral tab 1 tab once daily [Active]; aj1 - PMHx: 17:42 Bipolar disorder; Hypertension; aj1 - Immunization history:: Flu vaccine is not up to date. - Coronavirus screen:: The patient has NOT traveled to [place], [place], or [place] in the past 14 days. - Social history:: Smoking status: Patient/guardian denies using tobacco. - Ebola Screening: : Patient denies travel to an Ebola-affected area in the 21 days before illness onset. ROS: 18:25 Constitutional: Negative for fever, chills, and weight loss. jmm 18:25 Cardiovascular: Positive for chest pain. 18:25 Neuro: Positive for headache. 18:25 All other systems are negative. Exam: 18:25 Constitutional: This is a well developed, well nourished patient who is awake, alert, jmm and in no acute distress. Head/Face: atraumatic. Eyes: EOMI, no conjunctival erythema appreciated ENT: Moist Mucus Membranes Neck: Trachea midline, Supple 18:25 Abdomen/GI: Non distended, soft Back: Normal ROM Skin: General appearance color normal MS/ Extremity: Moves all extremities, no obvious deformities appreciated, no edema noted to the lower extremities Neuro: Awake and alert, normal gait Psych: Behavior is normal, Mood is normal, Patient is cooperative and pleasant 18:25 Chest/axilla: Inspection: normal, Palpation: is normal, tenderness, that is moderate, of the anterior aspect of left upper chest. 18:25 Cardiovascular: Rate: normal, Rhythm: regular. 18:25 Respiratory: the patient does not display signs of respiratory distress, Respirations: normal, Breath sounds: are clear throughout. Vital Signs: 17:42 BP 189 / 93; Pulse 70; Resp 18; Temp 97.4; Pulse Ox 100% on R/A; Weight 104.33 kg (R); aj1 Height 5 ft. 4 in. (162.56 cm) (R); Pain 8/10; 19:00 BP 161 / 82; Pulse 67; Resp 18; Pulse Ox 100% on R/A; wh 20:30 BP 155 / 74; Pulse 58; Resp 18; Pulse Ox 100% on R/A; wh 22:00 BP 161 / 85; Pulse 60; Resp 16; Pulse Ox 100% on R/A; wh 23:00 BP 148 / 65; Pulse 64; Resp 18; Pulse Ox 98% on R/A; wh 17:42 Body Mass Index 39.48 (104.33 kg, 162.56 cm) [facility] MDM: 17:52 Patient medically screened. [facility] 20:52 Data reviewed: vital signs, nurses notes. Counseling: I had a detailed discussion with [facility] the patient and/or guardian regarding: the historical points, exam findings, and any diagnostic results supporting the discharge/admit diagnosis, lab results, radiology results, the need for further work-up and treatment in the hospital. ED course: I discussed the patient with Dr. Jensen whom accepted admission. . 04/26 17:53 Order name: Basic Metabolic Panel; Complete Time: 18:41 [facility] 04/26 17:53 Order name: CBC with Diff; Complete Time: 18:58 [facility] 04/26 17:53 Order name: LFT's; Complete Time: 18:41 [facility] 04/26 17:53 Order name: Magnesium; Complete Time: 18:41 [facility] 04/26 17:53 Order name: NT PRO-BNP; Complete Time: 18:41 [facility] 04/26 17:53 Order name: PT-INR; Complete Time: 18:49 [facility] 04/26 17:53 Order name: Troponin (emerg Dept Use Only); Complete Time: 18:41 [facility] 04/26 17:53 Order name: XRAY Chest (1 view); Complete Time: 18:41 [facility] 04/26 18:12 Order name: CT Head Brain wo Cont; Complete Time: 18:53 [facility] 04/26 18:43 Order name: Urine Dipstick--Ancillary (enter results); Complete Time: 18:58 sp 04/26 18:43 Order name: Urine --Ancillary (enter results); Complete Time: 18:58 sp 04/26 19:16 Order name: D-Dimer; Complete Time: 20:04 [facility] 04/26 19:59 Order name: CT Chest For PE Angio; Complete Time: 20:46 [facility] 04/26 17:53 Order name: EKG; Complete Time: 17:54 [facility] 04/26 17:53 Order name: Cardiac monitoring; Complete Time: 18:23 [facility] 04/26 17:53 Order name: EKG - Nurse/Tech; Complete Time: 18:23 [facility] 04/26 17:53 Order name: IV Saline Lock; Complete Time: 18:23 [facility] 04/26 17:53 Order name: Labs collected and sent; Complete Time: 18:24 [facility] 04/26 17:53 Order name: O2 Per Protocol; Complete Time: 18:24 [facility] 04/26 17:53 Order name: O2 Sat Monitoring; Complete Time: 18:24 [facility] 04/26 17:53 Order name: Urine Dipstick-Ancillary (obtain specimen); Complete Time: 18:25 [facility] 04/26 17:53 Order name: Urine Test (obtain specimen); Complete Time: 18:25 jmm Administered Medications: 18:40 Drug: cloNIDine 0.1 mg Route: PO; wh 21:02 Follow up: Response: No adverse reaction; Blood pressure is lowered wh 18:42 Drug: Zofran 4 mg Route: IVP; Site: left antecubital; 21:02 Follow up: Response: No adverse reaction; Nausea is decreased 18:44 Drug: morphine 4 mg Route: IVP; Site: left antecubital; 21:01 Follow up: Response: No adverse reaction; Pain is decreased; RASS: Alert and Calm (0) 19:18 Drug: Valium 5 mg Route: IVP; Site: left antecubital; 21:03 Follow up: Response: No adverse reaction; RASS: Alert and Calm (0) 21:01 Drug: Tylenol 500 mg Route: PO; 23:25 Follow up: Response: No adverse reaction; Pain is decreased Disposition: 04/26/19 20:54 Hospitalization ordered by Cody Jensen for Observation. Preliminary diagnosis are Chest pain, unspecified, Headache. - Bed requested for Telemetry/MedSurg (observation). - Status is Observation. - Condition is Stable. - Problem is new. - Symptoms have improved. Addendum: 04/29/2019 18:52 Co-signature as Attending Physician, Kate Blue MD. m a2 Signatures: Dispatcher [employer] EDMS Rocio Ortiz RN RN aj1 Phillip Hodgson PA PA jmm Garcia, Cindy, RN RN cg Habalo, Winsy Kate Blue MD MD ma2 Corrections: (The following items were deleted from the chart) 04/26 22:51 20:54 Hospitalization Ordered by Cody Jensen for Observation. Preliminary diagnosis cg is Chest pain, unspecified; Headache. Bed requested for Telemetry/MedSurg (observation). Status is Observation. Condition is Stable. Problem is new. Symptoms have improved. [facility] 23:36 22:51 04/26/2019 20:54 Hospitalization Ordered by Cody Jensen for Observation. Preliminary diagnosis is Chest pain, unspecified; Headache. Bed requested for Telemetry/MedSurg (observation). Status is Observation. Condition is Stable. Problem is new. Symptoms have improved. cg
--- NOTE | 2019-04-26 20:55 | ER ---
Nurse's Notes [facility] Name: Dariela Coelho Age: 49 yrs Sex: Female : 1970 Arrival Date: 04/26/2019 Time: 17:36 Bed 25 Private MD: Diagnosis: Chest pain, unspecified;Headache Presentation: 04/26 17:39 Presenting complaint: Patient states: Left sided chest pain that radiates to the left aj1 arm that started at 1400 today. Patient also reports headache since Monday. Transition of care: patient was not received from another setting of care. Onset of symptoms was April 2019. Risk Assessment: Do you want to hurt yourself or someone else? Patient reports no desire to harm self or others. Initial Sepsis Screen: Does the patient meet any 2 criteria? No. Patient's initial sepsis screen is negative. Does the patient have a suspected source of infection? No. Patient's initial sepsis screen is negative. Care prior to arrival: None. 17:39 Method Of Arrival: Ambulatory aj1 17:39 Acuity: FLAVIO 3 aj1 Triage Assessment: 17:42 General: Appears in no apparent distress. comfortable, Behavior is calm, cooperative, aj1 appropriate for age. Pain: Complains of pain in anterior aspect of left upper chest Pain radiates to left arm. Neuro: Level of Consciousness is awake, alert, obeys commands. Cardiovascular: Reports chest pain, Patient's skin is warm and dry. Respiratory: Airway is patent Respiratory effort is even, unlabored, Respiratory pattern is regular, symmetrical. FX ARTIST: 17:42 LMP N/A - Depo-provera aj1 Historical: - Allergies: 17:42 Naproxen; aj1 17:42 Ibuprofen; aj1 17:42 Bactrim; aj1 17:42 Codeine; aj1 - Home Meds: 17:42 Seroquel 200 mg oral tab 1 tab once daily [Active]; aj1 - PMHx: 17:42 Bipolar disorder; Hypertension; aj1 - Immunization history:: Flu vaccine is not up to date. - Coronavirus screen:: The patient has NOT traveled to [place], [place], or [place] in the past 14 days. - Social history:: Smoking status: Patient/guardian denies using tobacco. - Ebola Screening: : Patient denies travel to an Ebola-affected area in the 21 days before illness onset. Screenin:00 Abuse screen: Denies threats or abuse. Denies injuries from another. Nutritional wh screening: No deficits noted. Tuberculosis screening: No symptoms or risk factors identified. Fall Risk None identified. Assessment: 18:00 General: Appears in no apparent distress. Behavior is calm, cooperative, appropriate wh for age. Pain: Complains of pain in chest Pain radiates to left arm Pain currently is 8 out of 10 on a pain scale. Quality of pain is described as aching, Pain began 4 hours ago. Neuro: Level of Consciousness is awake, alert, obeys commands, Oriented to person, place, time, situation, Appropriate for age. Cardiovascular: Reports chest pain, Heart tones S1 S2 Rhythm is regular. Respiratory: Airway is patent Respiratory effort is even, unlabored, Respiratory pattern is regular, symmetrical, Breath sounds are clear bilaterally. GI: Abdomen is flat, non-distended. : No signs and/or symptoms were reported regarding the genitourinary system. EENT: No signs and/or symptoms were reported regarding the EENT system. Derm: Skin is intact, is healthy with good turgor, Skin is pink, warm \T\ dry. normal. Musculoskeletal: Circulation, motion, and sensation intact. 19:45 Reassessment: Patient appears in no apparent distress at this time. No changes from previously documented assessment. Patient and/or family updated on plan of care and expected duration. Pain level reassessed. Patient is alert, oriented x 3, equal unlabored respirations, skin warm/dry/pink. 20:45 Reassessment: Patient appears in no apparent distress at this time. No changes from previously documented assessment. Patient and/or family updated on plan of care and expected duration. Pain level reassessed. Patient is alert, oriented x 3, equal unlabored respirations, skin warm/dry/pink. Provider at bedside explaining POC need for admit. 22:00 Reassessment: Patient appears in no apparent distress at this time. No changes from previously documented assessment. Patient and/or family updated on plan of care and expected duration. Pain level reassessed. Patient is alert, oriented x 3, equal unlabored respirations, skin warm/dry/pink. Hospitalist at bedside explaining POC need for admit. 23:27 Reassessment: Patient appears in no apparent distress at this time. No changes from previously documented assessment. Patient and/or family updated on plan of care and expected duration. Pain level reassessed. Patient is alert, oriented x 3, equal unlabored respirations, skin warm/dry/pink. Patient states feeling better. Patient states symptoms have improved. Vital Signs: 17:42 BP 189 / 93; Pulse 70; Resp 18; Temp 97.4; Pulse Ox 100% on R/A; Weight 104.33 kg (R); aj1 Height 5 ft. 4 in. (162.56 cm) (R); Pain 8/10; 19:00 BP 161 / 82; Pulse 67; Resp 18; Pulse Ox 100% on R/A; wh 20:30 BP 155 / 74; Pulse 58; Resp 18; Pulse Ox 100% on R/A; wh 22:00 BP 161 / 85; Pulse 60; Resp 16; Pulse Ox 100% on R/A; wh 23:00 BP 148 / 65; Pulse 64; Resp 18; Pulse Ox 98% on R/A; wh 17:42 Body Mass Index 39.48 (104.33 kg, 162.56 cm) [facility] ED Course: 17:36 Patient arrived in ED. ag5 17:41 Triage completed. [facility] 17:42 Arm band placed on Patient placed in an exam room. [facility] 17:46 Phillip Hodgson PA is PHCP. [facility] 17:46 Kate Blue MD is Attending Physician. [facility] 18:00 Patient has correct armband on for positive identification. Placed in gown. Bed in low wh position. Call light in reach. Side rails up X 1. environmental monitoring technician on. Pulse ox on. NIBP on. 18:00 Patient maintains SpO2 saturation greater than 95% on room air. 18:07 Initial lab(s) drawn, by pa, sent to lab. Inserted saline lock: 22 gauge in left lt1 antecubital area, using aseptic technique. 18:15 XRAY Chest (1 view) In Process Unspecified. EDMS 18:15 Louise Manrique is Primary Nurse. wh 18:32 CT Head Brain wo Cont In Process Unspecified. EDMS 20:26 CT Chest For PE Angio In Process Unspecified. EDMS 20:54 Cody Jensen is Hospitalizing Provider. [facility] 23:24 No provider procedures requiring assistance completed. Patient admitted, IV remains in place. Administered Medications: 18:40 Drug: cloNIDine 0.1 mg Route: PO; 21:02 Follow up: Response: No adverse reaction; Blood pressure is lowered 18:42 Drug: Zofran 4 mg Route: IVP; Site: left antecubital; 21:02 Follow up: Response: No adverse reaction; Nausea is decreased 18:44 Drug: morphine 4 mg Route: IVP; Site: left antecubital; 21:01 Follow up: Response: No adverse reaction; Pain is decreased; RASS: Alert and Calm (0) 19:18 Drug: Valium 5 mg Route: IVP; Site: left antecubital; 21:03 Follow up: Response: No adverse reaction; RASS: Alert and Calm (0) 21:01 Drug: Tylenol 500 mg Route: PO; 23:25 Follow up: Response: No adverse reaction; Pain is decreased Outcome: 20:54 Decision to Hospitalize by Provider. [facility] 23:24 Admitted to Med/surg accompanied by tech, family with patient, via wheelchair, room 211, with chart, Report called to Linda Amaya RN 23:24 Condition: stable 23:24 Instructed on the need for admit. 23:36 Patient left the ED. Signatures: Dispatcher [employer] Rocio Lin, ELIZABETH RN aj1 Phillip Hodgson PA PA jmm [facility] [place], Nati 5 Eduarda Montemayor [facility]
[2019-04-26] MEDS ORDERED: ACETAMINOPHEN 500 MG TAB ONE (21:05)
--- NOTE | 2019-04-26 22:45 | P.HP ---
Certification for Inpatient Patient admitted to: Observation With expected LOS: <2 Midnights Practitioner: I am a practitioner with admitting privileges, knowledge of patient current condition, hospital course, and medical plan of care. Services: Services provided to patient in accordance with Admission requirements found in Title 42 Section 412.3 of the Code of Federal Regulations Patient History Date of Service: 04/26/19 Reason for admission: Chest pain History of Present Illness: 41-year-old with a history of bipolar disorder presented emergency department with a complaint anterior chest pain of onset this morning.She described a nonradiating pain, severity described as moderate, no relieving factors, aggravated by coughing. Patient also reports frontal headache since yesterday. She went to see her PCP wound noted her blood pressure is elevated. Patient was referred to the ED for evaluation. Her systolic blood pressure was 180 in the ED. Initial troponin checked was negative. EKG demonstrates no acute ischemic changes. Chest x-ray unremarkable. D-dimer was elevated. CTA thorax following the elevated D- dimer was negative for pulmonary embolism. She was reporting mild chest pain during my examination. Patient is placed under observation for further management. Allergies carisoprodol [From Soma] Allergy (Mild, Verified 04/26/19 23:45) Hives codeine Allergy (Mild, Verified 04/26/19 23:46) Hives/Rash hydrocodone [Hydrocodone] Allergy (Mild, Verified 04/26/19 23:45) Itching/Hives/Rash naproxen Allergy (Mild, Verified 04/26/19 23:45) Hives sulfamethoxazole [From Bactrim] Allergy (Mild, Verified 04/26/19 23:45) Itching/Hives/Rash trimethoprim [From Bactrim] Allergy (Mild, Verified 04/26/19 23:45) Itching/Hives/Rash ibuprofen Allergy (Mild, Uncoded 04/26/19 23:45) Hives Home Medications: Quetiapine Fumarate [Seroquel] 200 mg PO BEDTIME 04/27/19 - Past Medical/Surgical History Diabetic: No -: Bipolar disorder - Family History Father -: Hypertension - Social History Smoking Status: Never smoker Alcohol use: No CD- Drugs: No Place of Residence: Home Review of Systems 10-point ROS is otherwise unremarkable Physical Examination - Physical Exam General: Alert, In no apparent distress, Oriented x3 HEENT: Normocephalic, Mucous membr. moist/pink, Sclerae nonicteric Neck: Supple, JVD not distended Respiratory: Clear to auscultation bilaterally, Normal air movement Cardiovascular: No edema, Normal pulses, Regular rate/rhythm, Normal S1 S2 Gastrointestinal: Normal bowel sounds, Soft and benign, Non-distended, No tenderness Musculoskeletal: No swelling, No erythema Integumentary: No rashes, No erythema Neurological: Normal speech, Normal strength at 5/5 x4 extr, Cranial nerves 3- 12 intact - Studies Laboratory Data (last 24 hrs) 04/26/19 18:06: PT 12.8 H, INR 1.09 04/26/19 18:06: WBC 4.4, Hgb 14.2, Hct 42.9, Plt Count 238 04/26/19 18:06: Sodium 139, Potassium 3.8, BUN 17, Creatinine 1.24, Glucose 95, Magnesium 1.9, Total Bilirubin 0.4, AST 15, ALT 17, Alkaline Phosphatase 148 H Assessment and Plan - Problems (Diagnosis) (1) Chest pain Current Visit: Yes Status: Acute (2) Accelerated hypertension Current Visit: Yes Status: Acute (3) Bipolar disorder Current Visit: Yes Status: Acute - Plan Place under observation Trend troponin Obtain echocardiogram Hydralazine IV p.r.n. for BP spikes Start amlodipine for uncontrolled BP. - Advance Directives Does patient have a Living Will: No Does patient have a Durable POA for Healthcare: No
[2019-04-26] MEDS ORDERED: NITROGLYCERIN 0.4 MG/TAB SL PRN (23:51)
[2019-04-26] MEDS ORDERED: MORPHINE 4 MG/ML SYR IV PRN (23:51)
[2019-04-26] MEDS ORDERED: ACETAMINOPHEN 500 MG TAB PO PRN (23:51)
[2019-04-26] MEDS ORDERED: HYDRALAZINE HCL 20 MG/ML VIAL IV PRN (23:51)
[2019-04-26 23:58] VITALS: BMI 40.1
[2019-04-27 01:00] LABS: HDL Cholesterol 55 mg/dL (40-60); LDL Cholesterol, Calculated 101 (<130); Troponin I < 0.02 ng/mL (0.0-0.045)
[2019-04-27] MEDS ORDERED: AMLODIPINE 5 MG TAB PO SCH (09:00)
[2019-04-27] MEDS ORDERED: ENOXAPARIN 40 MG/0.4 ML SQ SCH (09:00)
[2019-04-27] MEDS ORDERED: ASPIRIN EC 81 MG TAB PO SCH (09:00)
[2019-04-27 11:25] VITALS: O2SAT 100
[2019-04-27] MEDS ORDERED: INFLUENZA VACCINE (for 3y+) 0.5 ML DOSE IMVAC ONE (13:00)
[2019-04-27 13:04] VITALS: BP 187/93
[2019-04-27 14:49] VITALS: TEMP 98.1
[2019-04-27] MEDS ORDERED: QUETIAPINE 100MG TAB PO SCH (21:00)
[2019-04-27] MEDS ORDERED: QUETIAPINE FUMARATE 200 MG PO SCH (21:00)
--- NOTE | 2019-04-28 00:44 | DS ---
Date of Discharge: 04/27/2019 Discharge Diagnoses: 1.Chest pain, atypical, acute coronary syndrome ruled out. 2.Accelerated hypertension, improved. 3.Bipolar disorder. 4.Morbid obesity. Hospital Course: Patient is a 49-year-old female with past medical history of bipolar disorder, come s in from PCP's office due to elevated blood pressure and chest tightness. EKG did not show any isch emic changes. CT angio was negative for PE. Chest x-ray was unremarkable. She was started on amlod ipine. Her blood pressure improved. Cardiac enzymes were negative x3. Her cholesterol panel was no rmal. Patient denies any further chest pain. She did report some musculoskeletal pain in the middle of the chest, which has tenderness to palpation. She, otherwise, denies any cough, generalized dyan ise, or any high fevers. Influenza screen was also negative. Patient is doing well. Her blood pres sure has significantly improved with amlodipine. She was recommended to keep a diary of her blood pr essure and check her blood pressure at different times of the day and to keep in touch with her prima care physician and to call her PCP if the blood pressure is greater than 160 systolic. She was th en discharged home in a stable condition. Activity: As tolerated. Medications: As per medication reconciliation list. Followup: Follow up with primary care physician in 2-3 days, return to ER for worsening condition. Diet: Heart healthy. Physical Examination: General: Awake, alert, and oriented x3, no acute distress. Morbidly obese female. CV: S1, S2. Respiratory: Moving air well bilaterally. Abdomen: Abdomen is soft, nontender, nondistended. Positive bowel sounds. Extremities: No clubbing, cyanosis, or edema. Neurologic: Nonfocal. SA/MODL Voice ID: [id number] Report ID: [id number]
--- NOTE | 2019-04-28 06:30 | EKG ---
Test Date: 2019-04-26 Test Time: 18:19:32 Nat Instructor: ARTEM MEASUREMENT RESULTS: Intervals: Rate: 62 MO: 174 QRSD: 96 QT: 438 QTc: 444 [place]: P: 61 MO: 174 QRS: 0 T: 26 INTERPRETIVE STATEMENTS: Normal sinus rhythm with sinus arrhythmia Normal ECG Compared to ECG 03/02/2017 07:35:54 Sinus tachycardia no longer present Myocardial infarct finding no longer present Electronically Signed On 04-28-19 06:29:45 TELE RN by Vitor Isidro
== END 2019-04-27 13:02 | disposition home or self-care (01) ==
LOC: ER 17:33 → ERHOLD 22:49 → 2ND 23:28
PROVIDERS: ADMIT Internal Medicine; ATTEND Internal Medicine
DX: R07.9 Chest pain, unspecified (principal); I10 Essential (primary) hypertension; F31.9 Bipolar disorder, unspecified; E66.9 Obesity, unspecified; Z68.41 Body mass index [BMI] 40.0-44.9, adult
CPT/HCPCS: 93005; 85025; 80048; 36415; 83735; 81025; 85610; 80061; 85379; 80076; 81003; 84484 ×3; 83880; 87804 ×2; 70450; 71275; 71045; 94760; 96375; 96374; 99285; Q9967; J1650; J3360; J2405; G0378 ×2